=== PATIENT | female | born 1980 | race Caucasian/White ===

== ENCOUNTER 2018-08-05 12:09 | Emergency (ER) | payer SELFPAY ==
[2018-08-05 12:27] VITALS: BP 108/70; PULSE 97; TEMP 98.9; BMI 27.3
[2018-08-05] MEDS ORDERED: DEXAMETHASONE 4 MG TABLET (FP) PO ONE (12:52)
--- NOTE | 2018-08-05 12:54 | PDOC ---
History of Present Illness - General Chief Complaint: Sore Throat Stated Complaint: SORE THROAT Time Seen by Provider: 08/05/18 12:39 History Source: Patient Exam Limitations: No Limitations - History of Present Illness Initial Comments: 08/05/18 12:52 HISTORY OF PRESENT ILLNESS: 37-year-old woman presents for evaluation of fevers , sore throat and frontal headache for the past 7 days. Patient reports increased odynophagia over the past 7 days. She denies any cough, nasal congestion, chest pain, shortness of breath, abdominal pain, nausea, vomiting. No recent travel or sick contacts. PAST MEDICAL HISTORY: Denies past medical history SURGICAL HISTORY: Denies ALLERGIES: No known drug allergies REVIEW OF SYSTEMS General/Constitutional: +fever. Denies chills. Denies weakness, weight change. HEENT: Denies change in vision. Denies ear pain or discharge. +sore throat. Cardiovascular: Denies chest pain or shortness of breath. Respiratory: Denies cough, wheezing, or hemoptysis. Gastrointestinal: Denies nausea, vomiting, diarrhea or constipation. Denies rectal bleeding. Genitourinary: Denies dysuria, frequency, or change in urination. Musculoskeletal: Denies joint or muscle swelling or pain. Denies neck or back pain. Skin and breasts: Denies rash or easy bruising. Neurologic: Frontal headache. Denies vertigo, loss of consciousness, or loss of sensation. Psychiatric: Denies depression or anxiety. Endocrine: Denies increased thirst. Denies abnormal weight change. Hematologic/Lymphatic: Denies anemia, easy bleeding, or history of blood clots. Allergic/Immunologic: Denies hives or skin allergy. Denies latex allergy. PHYSICAL EXAM General Appearance: Well-appearing, appropriately dressed. No apparent distress , no intoxication. HEENT: EOMI, PERRLA, normal voice, TMs normal. No conjunctival pallor. No photophobia, scleral icterus. Oropharynx erythematous without lesions or exudate. Left tonsil +2, right tonsils within normal limits Neck: Supple. Trachea midline. No tenderness, rigidity, carotid bruit, stridor or thyromegaly. Tender submandibular lymphadenopathy with L>R. Nontender anterior cervical lymphadenopathy present. Respiratory/Chest: Lungs CTAB. No shortness of breath, chest tenderness, respiratory distress, accessory muscle use. No crackles, rales, rhonchi, stridor , wheezing, dullness Cardiovascular: RRR. S1, S2. No JVD, murmur, bradycardia, tachycardia. Integumentary: Appropriate color, dry, warm. No cyanosis, erythema, jaundice or rash Neurologic: dance director II-XII intact. Fully oriented, alert. Appropriate mood/affect. Motor strength 5/5. No appreciable EOM palsy, facial droop or sensory deficit. Past History - Past Medical History Allergies/Adverse Reactions: Allergies Allergy/AdvReac Type Severity Reaction Status Date / Time No Known Allergies Allergy Verified 08/05/18 12:24 Home Medications: Ambulatory Orders Amoxicillin - [Amoxicillin 500mg Capsule -] 500 mg PO BID #20 capsule 08/05/18 Asthma: No Cancer: No Cardiac Disorders: No COPD: No Diabetes: No HTN: No Seizures: No Thyroid Disease: No - Immunization History Immunization Up to Date: Yes - Suicide/Smoking/Psychosocial Hx Smoking History: Never smoked Have you smoked in the past 12 months: No Hx Alcohol Use: No Drug/Substance Use Hx: No Hx Substance Use Treatment: No *Physical Exam - Vital Signs Last Vital Signs Temp Pulse Resp BP Pulse Ox 98.9 F 97 H 18 108/70 99 08/05/18 12:24 08/05/18 12:24 08/05/18 12:24 08/05/18 12:24 08/05/18 12:24 Moderate Sedation - Procedure Monitoring Vital Signs: Procedure Monitoring Vital Signs Temperature 98.9 F 08/05/18 12:24 Pulse Rate 97 H 08/05/18 12:24 Respiratory Rate 18 08/05/18 12:24 Blood Pressure 108/70 08/05/18 12:24 O2 Sat by Pulse Oximetry (%) 99 08/05/18 12:24 Medical Decision Making - Medical Decision Making 08/05/18 12:52 A/P: 37-year-old woman who denies medical history with 1 week of sore throats, fevers and headaches Oropharynx erythematous without lesions or exudate Left tonsil +2, right tonsils within normal limits TMs pearly tian with appropriate light reflex bilaterally Tender submandibular lymphadenopathy present left greater than right Nontender anterior cervical lymphadenopathy present Lungs clear to auscultation bilaterally Symptoms are consistent with pharyngitis. I'll send rapid strep testing to rule out bacterial etiology. Decadron 10 mg orally now Reassess 08/05/18 13:48 Rapid strep testing is positive. I will discharge the patient home with prescription for amoxicillin 500 mg twice a day for 10 days. Patient has been instructed to begin using a new toothbrush on the day 3 of antibiotics and to take Tylenol and Motrin for her fevers. Patient verbalizes understanding of discharge instructions, was satisfied with the care and is in agreement with the current plan. *DC/Admit/Observation/Transfer Diagnosis at time of Disposition: Strep pharyngitis - Discharge Dispostion Disposition: HOME Condition at time of disposition: Stable Decision to Admit order: No - Prescriptions Prescriptions: Amoxicillin - [Amoxicillin 500mg Capsule -] 500 mg PO BID #20 capsule - Referrals - Patient Instructions Additional Instructions: Take amoxicillin as prescribed. Salt water garggles. Throw away your toothbrush in 3 days and start using a new toothbrush. No sharing of drinks, utensils or toothbrushes. Take Motrin as directed by pipe fitter maintenance's instructions. Return to ED for worsening fevers, worsening sore throat, chest pain, shortness of breath or any other concerns. - Post Discharge Activity Forms/Work/School Notes: Back to Work
[2018-08-05] MEDS ORDERED: DEXAMETHASONE 4 MG TABLET (FP) ONE (12:59)
== END 2018-08-05 13:54 | disposition home or self-care (01) ==
LOC: JERFT 12:09
DX: J02.0 Streptococcal pharyngitis (principal); B95.0 Streptococcus, group A, as the cause of diseases classified elsewhere
CPT/HCPCS: 87880; 99281-25

== ENCOUNTER 2019-05-26 15:54 | Emergency (ER) | payer OTHER ==
[2019-05-26 16:04] VITALS: BP 94/75; PULSE 76; TEMP 98.3; BMI 29.2
[2019-05-26] MEDS ORDERED: DEXAMETHASONE LIQUID 0.5 MG/5 ML PO ONE (16:31)
[2019-05-26] MEDS ORDERED: DEXAMETHASONE SOD PHOSPHATE 10 MG/1 ML VIAL ONE (16:33)
--- NOTE | 2019-05-26 16:36 | PDOC ---
History of Present Illness - General Chief Complaint: Sore Throat Stated Complaint: SORE THROAT Time Seen by Provider: 05/26/19 16:19 History Source: Patient Exam Limitations: No Limitations - History of Present Illness Initial Comments: 05/26/19 16:33 HISTORY OF PRESENT ILLNESS: This is a 38-year-old woman who denies medical history presents to the emergency department for evaluation of fevers, sore throat and headache for the past 2 days. Patient states her son was seen and evaluated in urgent care center was noted to have positive test for prescription throat and is currently being treated with antibiotics. Mother is unsure if she shared any utensils or drinking vessels with her son. She denies dysuria, cough, shortness of breath, abdominal pain, nausea or vomiting. No recent travel. PAST MEDICAL HISTORY: Denies past medical history SURGICAL HISTORY: Denies ALLERGIES: No known drug allergies REVIEW OF SYSTEMS General/Constitutional: See HPI HEENT: See HPI Cardiovascular: Denies chest pain or shortness of breath. Respiratory: Denies cough, wheezing, or hemoptysis. Gastrointestinal: Denies nausea, vomiting, diarrhea or constipation. Denies rectal bleeding. Genitourinary: Denies dysuria, frequency, or change in urination. Musculoskeletal: Denies joint or muscle swelling or pain. Denies neck or back pain. Skin and breasts: Denies rash or easy bruising. Neurologic: See HPI Psychiatric: Denies depression or anxiety. Endocrine: Denies increased thirst. Denies abnormal weight change. Hematologic/Lymphatic: Denies anemia, easy bleeding, or history of blood clots. Allergic/Immunologic: Denies hives or skin allergy. Denies latex allergy. PHYSICAL EXAM General Appearance: Well-appearing, appropriately dressed. No apparent distress , no intoxication. HEENT: EOMI, PERRLA, normal ENT inspection, normal voice, TMs normal. No conjunctival pallor. No photophobia, scleral icterus. Oropharynx erythematous with right tonsillar exudate present. Uvula is midline. No stridor noted. Halitosis present. Neck: Supple. Trachea midline. No rigidity, carotid bruit, stridor, or thyromegaly. Tender anterior cervical lymphadenopathy present bilaterally. Respiratory/Chest: Lungs CTAB. No shortness of breath, chest tenderness, respiratory distress, accessory muscle use. No crackles, rales, rhonchi, stridor , wheezing, dullness Cardiovascular: RRR. S1, S2. No JVD, murmur, bradycardia, tachycardia. Vascular Pulses: Dorsalis-Pedis (R): 2+, Dorsalis-Pedis (L): 2+ Gastrointestinal/Abdominal: Normal bowel sounds. Abdomen soft, non-distended. No tenderness or rebound tenderness. No organomegaly, pulsatile mass, guarding, hernia, hepatomegaly, splenomegaly. Lymphatic: No adenopathy, tenderness. Neurologic: pelt inspector II-XII intact. Fully oriented, alert. Appropriate mood/affect. Motor strength 5/5. No appreciable EOM palsy, facial droop or sensory deficit. Past History - Past Medical History Allergies/Adverse Reactions: Allergies Allergy/AdvReac Type Severity Reaction Status Date / Time No Known Allergies Allergy Verified 05/26/19 16:00 Home Medications: Ambulatory Orders Amoxicillin - [Amoxicillin 500mg Capsule -] 500 mg PO BID #20 capsule 05/26/19 Asthma: No Cancer: No Cardiac Disorders: No COPD: No Diabetes: No HTN: No Seizures: No Thyroid Disease: No - Immunization History Immunization Up to Date: Yes - Psycho Social/Smoking Cessation Hx Smoking History: Never smoked Have you smoked in the past 12 months: No Hx Alcohol Use: No Drug/Substance Use Hx: No Hx Substance Use Treatment: No *Physical Exam - Vital Signs Last Vital Signs Temp Pulse Resp BP Pulse Ox 98.3 F 76 18 94/75 99 05/26/19 16:03 05/26/19 16:03 05/26/19 16:03 05/26/19 16:03 05/26/19 16:03 Medical Decision Making - Medical Decision Making 05/26/19 16:32 A/P: 38-year-old woman with sore throat fevers for the past 2 days Patient with known sick contact of her son who was diagnosed with streptococcal pharyngitis yesterday and is currently being treated with antibiotics Right sided tonsillar erythema with exudates are present Tender anterior cervical lymphadenopathy present Halitosis present Given physical exam and sick contacts this is most likely a streptococcal pharyngitis for which I will treat with amoxicillin 500 mg twice daily for the next 10 days. I discussed the physical exam findings, ancillary test results and final diagnoses with the patient. I answered all of the patient's questions. The patient was satisfied with the care received and felt comfortable with the discharge plan and treatment plan. The patient will call their primary care physician within 24 hours to arrange follow-up and will return to the Emergency Department with any new, persistent or worsening symptoms. Discharge - Discharge Information Problems reviewed: Yes Clinical Impression/Diagnosis: Pharyngitis Qualifiers: Pharyngitis/tonsillitis etiology: unspecified etiology Qualified Code(s): J02.9 - Acute pharyngitis, unspecified Condition: Stable Disposition: HOME - Admission No - Additional Discharge Information Prescriptions: Amoxicillin - [Amoxicillin 500mg Capsule -] 500 mg PO BID #20 capsule - Follow up/Referral - Patient Discharge Instructions Additional Instructions: Take amoxicillin as prescribed. Salt water garggles. Throw away your toothbrush in 3 days and start using a new toothbrush. No sharing of drinks, utensils or toothbrushes. Take Motrin as directed by fluorescent solution mixer's instructions. Return to ED for worsening fevers, worsening sore throat, chest pain, shortness of breath or any other concerns. - Post Discharge Activity
== END 2019-05-26 16:36 | disposition home or self-care (01) ==
LOC: JERFT 15:54
DX: J02.9 Acute pharyngitis, unspecified (principal)
CPT/HCPCS: 99281-25